=== PATIENT | female | born 1980 | race Two or more races ===

== ENCOUNTER → 2018-01-06 | Outpatient (CLI) | payer BC ==
[2018-01-06] MEDS: NITROGLYCERIN AEROSOL (4.9 GM) (11:40)
[2018-01-06] MEDS: IOHEXOL 100 ML (11:50)
[2018-01-06] MEDS: SOD CHLORIDE 0.9% 100 ML (11:50)
[2018-01-06] MEDS: IOHEXOL 350MG/ML 50 ML BTL (11:51)
== END | disposition home or self-care (01) ==
LOC: C/S 10:32
DX: R94.39 Abnormal result of other cardiovascular function study (principal)
CPT/HCPCS: 75574